=== PATIENT | male | born 1965 | race Caucasian/White ===

== ENCOUNTER 2018-03-08 14:19 | Emergency (ER) | payer OTHER ==
[~2018-03-08] VITALS: Ht 190.5 cm; Wt 95.2 kg
[2018-03-08] MEDS ORDERED: ZESTRIL20 MG PO (15:31)
[2018-03-08] MEDS ORDERED: LASIX40 MG PO ×2 (15:31→15:50)
[2018-03-08] MEDS ORDERED: METOPROLOL SUCC25 MG PO (15:32)
[2018-03-08] MEDS ORDERED: SPIRONOLACTONE25 MG PO (15:33)
[2018-03-08] MEDS ORDERED: VENTOLIN HFA18 GM INH (15:34)
[2018-03-08] MEDS ORDERED: TOPROL XL25 MG PO (15:50)
[2018-03-08] MEDS ORDERED: LISINOPRIL20 MG PO (15:50)
== END 2018-03-08 16:03 | disposition home or self-care (01) ==
LOC: ED 14:19
DX: Z76.0 Encounter for issue of repeat prescription (principal); I11.0 Hypertensive heart disease with heart failure; I50.9 Heart failure, unspecified; Z87.891 Personal history of nicotine dependence; Z79.899 Other long term (current) drug therapy
CPT/HCPCS: 99281